=== PATIENT | female | born 1955 | race African-American/Black ===

== ENCOUNTER 2020-11-03 14:18 | Emergency (ER) | payer OTHER ==
[~2020-11-03] VITALS: Ht 160 cm; Wt 109.8 kg
[~2020-11-03 14:18] MED LIST: ASA81 MG; BENADRYL25 MG PO; MOTRIN50 MG; PENICILLAMINE(D-5 GM; SOYA LECITHIN1200 MG; ZYRTEC10 M3 PO
[2020-11-03] MEDS ORDERED: AMLODIPINE BESYL5 MG PO (14:37)
[2020-11-03] MEDS ORDERED: ATORVASTATIN CA20 MG PO (14:37)
[2020-11-03] MEDS ORDERED: METOPROLOL SUC200 MG PO (14:38)
[2020-11-03] MEDS ORDERED: LOSARTAN-HCTZ1 EAC2 PO (14:38)
[2020-11-03] MEDS ORDERED: TENORMIN50 M1 PO (14:41)
[2020-11-03] MEDS ORDERED: HYDROCHLOROTH12.5 MG PO (14:41)
[2020-11-03] MEDS ORDERED: LEVOFLOXACIN500 MG PO ×2 (19:31→21:53)
[2020-11-03] MEDS ORDERED: PYRIDIUM100 MG PO (19:31)
[2020-11-03] MEDS ORDERED: NORFLEX100MG PO (19:34)
== END 2020-11-03 21:54 | disposition home or self-care (01) ==
LOC: ER 14:18
DX: E86.0 Dehydration (principal); N39.0 Urinary tract infection, site not specified; U07.1 COVID-19